=== PATIENT | male | born 1990 | race Caucasian/White ===

== ENCOUNTER 2019-09-14 12:26 | Day surgery (SDC) | payer BC ==
[~2019-09-14 12:26] MED LIST: Buffered Lidocaine 1% SYRIN* 1 ML/SYRINGE INTRADERM ONE; Lactated Ringers 1000 ML Bag* 1,000 ML IV SCH
[2019-09-14] MEDS ORDERED: Buffered Lidocaine 1% SYRIN* 1 ML/SYRINGE INTRADERM ONE (12:49)
[2019-09-14] MEDS ORDERED: Midazolam* 1 MG/ML 5 ML VIAL (5 MG) ONE (15:19)
[2019-09-14] MEDS ORDERED: Ondansetron INJ* 2 MG/ML VIAL ONE (15:41)
[2019-09-14] MEDS ORDERED: Propofol* 10 MG/ML 20 ML BTL ONE (15:41)
[2019-09-14] MEDS ORDERED: Acetaminophen TAB* 325 MG PO PRN (15:52)
[2019-09-14 16:35] VITALS: BP 111/71
--- NOTE | 2019-09-14 23:55 | PRO ---
DATE: 09/14/19 REFERRING PHYSICIAN: Dr. Sean Mack. PROCEDURE: Upper gastrointestinal endoscopy and biopsy of lesser curvature, CLOtest. 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 He does have some indigestion from time to time but prefers to wait it out and not take any antacids. There is no history of vomiting or dysphagia. Informed consent was obtained with an opportunity for questions, special concerns, and travel discussion. His significant other was with him. ENDOSCOPIST: Wil Lozano MD MEDICATIONS: Monitored anesthesia per Dr. Lowe. FINDINGS: He is a morbidly-obese young man, in no distress. He was positioned left side down and padded. Sedation was administered. EGD: Larynx - limited views are normal. Esophagus - easily entered and the mucosa was normal in the upper, mid and lower esophagus with EG junction at 40. Stomach - generally normal mucosa in the cardia, fundus, body, and antrum. A CLOtest was taken mid gastric body lesser curvature aspect. Duodenum - the pylorus, bulb, and second through fourth portions appeared normal. There were no abnormalities whatsoever. IMPRESSION: Normal upper endoscopy Addendum: Clotest negative [id number]/[facility] #: [id number] [facility]
== END 2019-09-14 16:35 | disposition home or self-care (01) ==
LOC: OR 12:26
PROVIDERS: ATTEND Internal Medicine Gastroenterology
DX: Z01.818 Encounter for other preprocedural examination (principal); E66.01 Morbid (severe) obesity due to excess calories; Z68.43 Body mass index [BMI] 50.0-59.9, adult; I10 Essential (primary) hypertension; G47.33 Obstructive sleep apnea (adult) (pediatric)
CPT/HCPCS: 87077; J2250; J2405; J2704

== ENCOUNTER 2020-03-05 08:34 | Day surgery (SDC) | payer BC ==
[~2020-03-05 08:34] MED LIST changes: +Buffered Lidocaine 1% SYRIN 1 ml INTRADERM ONE; -Buffered Lidocaine 1% SYRIN* 1 ML/SYRINGE INTRADERM ONE; +Famotidine IV 10 MG/ML 2 ml VIAL (20 mg) IV ONE; +Famotidine IV 10 MG/ML 2 ml VIAL (20 mg) ONE; +Heparin 5000 UNITS/ML 1 mL VIAL ONE; -Lactated Ringers 1000 ML Bag* 1,000 ML IV SCH; +Lactated Ringers 1000 ml BAG 1,000 ML IV SCH; +Lidocaine 2% PF 5 ML VIAL ONE; +Midazolam 2 mg/2 ml VIAL 1 mg/ml 2 ml VIAL (2 mg) ONE; +Propofol 10 MG/ML 20 ML BTL ONE; +ceFAZolin 1 GM ADVAN 1 GM ADDV.VIAL IVPB ONE; +ceFAZolin 2 GM PREMIX 2 GM/50 ML BAG ONE; +fentaNYL 250 mcg/5 ml 50 MCG/ML 5 ml VIAL (250 MCG) ONE
[2020-03-05] MEDS ORDERED: Buffered Lidocaine 1% SYRIN 1 ml INTRADERM ONE (08:58)
[2020-03-05] MEDS ORDERED: Bupivacaine 0.25% EPI 200,000 30 ML SDV ONE (09:19)
[2020-03-05] MEDS ORDERED: Rocuronium 50 mg VIAL 10 mg/ml 5 ml VIAL (50 mg) ONE (09:24)
[2020-03-05] MEDS ORDERED: Succinylcholine 200 mg VIAL 20 mg/ml 10 ml VIAL (200 mg) ONE (09:24)
[2020-03-05] MEDS ORDERED: Dexamethasone IV 4 MG/ML VIAL 1 ml VIAL ONE (10:10)
[2020-03-05] MEDS ORDERED: Metoclopramide 5 MG/ML VIAL (10 mg) ONE (10:11)
[2020-03-05] MEDS ORDERED: fentaNYL 100 mcg/2 ml 50 MCG/ML VIAL ONE (10:42)
[2020-03-05] MEDS ORDERED: oxyCODONE/Acetamin 5/325 mg TAB PO PRN (10:55)
[2020-03-05] MEDS ORDERED: Naloxone 0.4 mg VIAL 0.4 mg/ml 1 ml VIAL IV PRN (10:55)
[2020-03-05] MEDS ORDERED: Sugammadex 500 MG/5 ML 5 ml VIAL IV PUSH ONE (11:03)
[2020-03-05] MEDS ORDERED: Ondansetron 4 mg VIAL 2 MG/ML 2 ml VIAL ONE (11:03)
[2020-03-05] MEDS ORDERED: HYDROmorphone 0.5 MG/0.5 ML SYRINGE IV SLOW PU PRN (11:31)
[2020-03-05] MEDS ORDERED: diPHENhydraMINE IV 50 MG/ML 1 ml VIAL (BENADRYL) SLOW PUSH PRN (11:31)
[2020-03-05] MEDS ORDERED: Ondansetron 4 mg VIAL 2 MG/ML 2 ml VIAL IV PRN (11:31)
[2020-03-05] MEDS ORDERED: HYDROcodone/ACET. 7.5/325 LIQ 15 ML UDC PO PRN (11:31)
[2020-03-05] MEDS ORDERED: Morphine 4 MG/ML VIAL (1 ml) ONE (11:35)
[2020-03-05] MEDS: Morphine 4 MG/ML VIAL (1 ml) IV PRN ×2 (11:37→11:46)
[2020-03-05] MEDS ORDERED: HYDROmorphone 1 MG/1 ML SYRINGE ONE ×2 (11:55→12:45)
[2020-03-05] MEDS: HYDROmorphone 1 MG/1 ML SYRINGE IV PRN ×2 (12:00→12:15)
[2020-03-05] MEDS: HYDROmorphone 1 MG/1 ML SYRINGE IV SLOW PU PRN ×4 (12:50→18:48)
[2020-03-05] MEDS: Lactated Ringers 1000 ml BAG 1,000 ML IV SCH ×2 (13:39→20:43)
[2020-03-05] MEDS: Famotidine IV 10 MG/ML 2 ml VIAL (20 mg) IV SLOW PU SCH (21:00)
[2020-03-05] MEDS: Heparin 5000 UNITS/ML 1 mL VIAL SUBCUT SCH (22:18)
[2020-03-06] MEDS: Lactated Ringers 1000 ml BAG 1,000 ML IV SCH ×2 (03:19→09:57)
[2020-03-06] MEDS: Heparin 5000 UNITS/ML 1 mL VIAL SUBCUT SCH (06:03)
[2020-03-06] MEDS: Famotidine IV 10 MG/ML 2 ml VIAL (20 mg) IV SLOW PU SCH (08:25)
[2020-03-06 11:16] VITALS: BP 153/74
[2020-03-06] MEDS ORDERED: D5W 1/2 NS KCl 20 meq 1000 ml 1,000 ML IV SCH (12:00)
[2020-03-08] MEDS ORDERED: Scopolamine PATCH Remove NOTE PATCH OFF ONE (09:00)
== END 2020-03-06 13:35 | disposition home or self-care (01) | DRG 403 ==
LOC: OR 08:34 → SSU 14:00
PROVIDERS: ADMIT Surgery; ATTEND Surgery